=== PATIENT | male | born 1945 | race Caucasian/White ===

== ENCOUNTER → 2017-03-14 | Outpatient (REF) ==
[~2017-03-14] MED LIST: ATENOLOL50 MG PO; CLINDAMYCIN HC300 MG PO; MVI; VITAMIN D
[2017-03-14 16:05] LABS: PSA-TOTAL 1.14 ng/mL (0-4); THYROID STIMULATING HORMONE 2.32 uIU/mL (0.465-4.680)
== END ==
LOC: ZLAB.WCH 14:53
PROVIDERS: Internal Medicine
DX: Z01.89 Encounter for other specified special examinations (principal)
CPT/HCPCS: G0103

== ENCOUNTER → 2018-03-13 | Outpatient (REF) ==
[2018-03-13 18:19] LABS: THYROID STIMULATING HORMONE 1.65 uIU/mL (0.465-4.680)
[2018-03-13 19:14] LABS: PSA-TOTAL 1.19 ng/mL (0-4)
== END ==
LOC: ZLAB.WCH 16:10 → ZLAB.STJ 16:10
PROVIDERS: Internal Medicine
DX: Z01.89 Encounter for other specified special examinations (principal)
CPT/HCPCS: G0103